=== PATIENT | male | born 1955 | race Caucasian/White ===

== ENCOUNTER 2020-02-18 08:34 | Inpatient (IN) | payer BC ==
[2020-02-18] VITALS (12 sets, daily range): BP systolic 120–163; BP diastolic 68–93
[~2020-02-18] VITALS: Ht 177.8 cm; Wt 107.4 kg
[2020-02-18] MEDS ORDERED: NORVASC 2.5 MG2.5 M1 PO (08:39)
[2020-02-18] MEDS ORDERED: LISINOPRIL2.5 MG PO (08:39)
[2020-02-18] MEDS ORDERED: LORCET 5-325 M1 EACH PO (08:40)
[2020-02-18 09:03] LABS: ABSOLUTE BASOPHILS 0.1 thou/uL (0.0-0.2); ABSOLUTE LYMPHOCYTES 1.8 thou/uL (0.8-5.3); ABSOLUTE MONOCYTES 0.5 thou/uL (0.0-1.2); ABSOLUTE NEUTROPHILS 6.6 thou/uL (1.6-8.1); EOSINOPHILS 0.5 %; HEMATOCRIT 43.7 % (42.0-52.0); HEMOGLOBIN 15.7 gm/dL (14.0-18.0); LYMPHOCYTES 19.9 %; MCH 32.1 pg (26.0-34.0); MCV 89.3 fL (80.0-100.0); MONOCYTES 5.1 %; MPV 9.1 fl. (7.2-11.1); NUCLEATED RBCS 0 /100WBC; PLATELET COUNT* 155 thou/uL (150-400); POLYS 73.5 %; RBC 4.89 mil/uL (4.50-6.00); RDW-CV 13.3 % (10.5-14.5)
[2020-02-18 09:09] LABS: CALCIUM 8.7 mg/dL (8.5-10.1); CREATININE 1.1 mg/dL (0.6-1.3); POTASSIUM 3.7 mmol/L (3.5-5.1)
[2020-02-18 09:12] LABS: APTT 27.5 Seconds (25.0-31.3); PROTIME 10.5 Seconds (9.20-11.50)
[2020-02-18 09:23] LABS: ALBUMIN 3.7 g/dL (3.4-5.0); MAGNESIUM 1.9 mg/dL (1.8-2.4); TOTAL BILIRUBIN 0.6 mg/dL (<0.1-1.0); TOTAL PROTEIN 6.8 g/dL (6.4-8.2)
[2020-02-18 09:55] LABS: CHOLESTEROL 190 mg/dL (<200); HDL CHOLESTEROL 28 mg/dL (>40); LDL CHOLESTEROL 108 mg/dL (<100); TC:HDL 6.8 Ratio (Not establshd); TRIGLYCERIDE 271 mg/dL (<150); VLDL 54 mg/dL (<40)
[2020-02-18 09:58] LABS: SERUM ASSESSMENT Clear
--- NOTE | 2020-02-18 15:25 | EKG ---
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
--- NOTE | 2020-02-18 16:45 | NUR ---
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 CATH CHECK DONE AT BS. PT ORIENTED TO ROOM,CALL LIGHT WITHIN REACH. EDUCATED ON BEDREST. VSS. NSR
--- NOTE | 2020-02-18 18:37 | NUR ---
PT UP THIS PM FROM GOAL UMPIRE. NO SIGNS OF BLEEDING OR HEMATOMA. NSR. DENIES CHEST PAIN. VSS
[2020-02-19 04:00] VITALS: BP 126/76
[2020-02-19 04:29] LABS: HEMATOCRIT 41.6 % (42.0-52.0); HEMOGLOBIN 15.1 gm/dL (14.0-18.0); MCH 32.5 pg (26.0-34.0); MCHC 36.2 g/dL (28.0-37.0); MCV 89.6 fL (80.0-100.0); MPV 9.9 fl. (7.2-11.1); RBC 4.65 mil/uL (4.50-6.00); RDW-CV 12.9 % (10.5-14.5); WBC 6.6 thou/uL (4.0-11.0)
--- NOTE | 2020-02-19 04:49 | NUR ---
PATIENT PROGRESSING TOWARDS GOALS: RIGHT GROIN CATH SITE REMAINS WITHOUT DRAINAGE EXTENDING BEYOND PREVIOUSLY MARKED BORDERS. REMAINS SOFT. PATIENT UP INDEPEDENTLY WITHOUT COMPLICATIONS. DENIES CHEST PAIN AND DISCOMFORT.
[2020-02-19 05:18] LABS: CALCIUM 8.1 mg/dL (8.5-10.1); POTASSIUM 3.5 mmol/L (3.5-5.1)
[2020-02-19 08:45] VITALS: BP 157/92
[2020-02-19] MEDS ORDERED: EFFIENT10 MG PO (09:36)
[2020-02-19] MEDS ORDERED: ASPIR 8181 M1 PO (09:36)
[2020-02-19 10:08] VITALS: BP 157/92
[2020-02-19] MEDS ORDERED: LIPITOR40 MG PO (10:18)
[2020-02-19] MEDS ORDERED: TOPROL XL25 MG PO (10:23)
[2020-02-19] MEDS ORDERED: NITROSTAT0.4 M1 SUBLING (10:26)
--- NOTE | 2020-02-19 10:44 | EKG ---
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
--- NOTE | 2020-02-19 10:45 | EKG ---
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 : 1955 Requested By: Omar Calle Order Number: [id number] Uli MD: Omar Calle Measurements Intervals [place] Rate: 62 P: 22 OR: 187 QRS: -4 QRSD: 97 T: 79 QT: 424 QTc: 431 Interpretive Statements Sinus rhythm Atrial premature complexes Abnormal R-wave progression, early transition Compared to ECG 02/18/2020 17:02:15 Atrial premature complex(es) now present Electronically Signed On 02-19-2020 10:45:33 CDT by Omar Calle [email or web address] <ELECTRONICALLY SIGNED> By: Omar Calle MD, [facility] 02/19/20 1045 0352 0352 Omar Calle MD, [facility] /EPI
[2020-02-19 11:08] VITALS: BP 157/92
[2020-02-19 12:10] VITALS: BP 138/81
--- NOTE | 2020-02-19 15:23 | NUR ---
Nutrition: consulted by cardiac rehab for heart healthy diet edu. Pt was out of room at visit this afternoon, diet information left by a hat on bedside table.
--- NOTE | 2020-02-21 14:43 | D ---
[facility] [address] [place] [address] DISCHARGE SUMMARY Name: EFREN ESPINOZA Room: [address] IN .R.#: [id number] Admission: 02/18/20 Attend Phys: Eric Monzon MD Discharge: 02/19/20 Date of : 57 Report #: [id number] THIS REPORT FOR: //name// cc: HERI DONIS MD, STEVEN A. MD ~ THIS REPORT FOR: //name// CC: Eric Donis MD DATE OF SERVICE: 02/19/2020 DISCHARGE DIAGNOSES: 1. Non-ST segment elevation myocardial infarction. 2. Coronary artery disease. 3. Hypertension. 4. Diabetes. 5. Hyperlipidemia. CONSULTANTS: None. PROCEDURES: Left heart catheterization via the right femoral artery with placement of drug-eluting stents in the right coronary artery and distal circumflex artery. CONSULTANTS: None. HISTORY OF PRESENT ILLNESS: The patient is a 64-year-old white male who came to the Emergency Room complaining of chest pain. The patient has a long history of diabetes and hypertension. Fortunately, he lost weight and he is no longer taking diabetic medications. He does not exercise on a regular basis. He works at [employer] and his is actually in [place] with his child. He has no previous history of heart disease. However, he worked the night prior to admission when he felt a discomfort in his chest, it started about 5 hours prior to admission. He had another episode several days ago. He denies exertional dyspnea and palpitations. Because of discomfort, he finally brought himself to the Emergency Room and he was noted to have an abnormal troponin. PAST MEDICAL HISTORY: Significant for a previous cervical spine fusion. He has a history of hypertension and glucose intolerance. MEDICATIONS: Include lisinopril and amlodipine. He is on hydrocodone for chronic back pain. ALLERGIES: HE [place] [address] DISCHARGE SUMMARY Name: EFREN ESPINOZA Room: [address]#: [id number] Admission: 02/18/20 Attend Phys: Eric Monzon MD Discharge: 02/19/20 Date of : 57 Report #: [id number] PHYSICAL EXAMINATION: VITAL SIGNS: His blood pressure was 160/90 and pulse was 70. CHEST: Clear to auscultation. CARDIAC: Regular rate and rhythm. ABDOMEN: Soft. EXTREMITIES: Had no edema. SKIN: Cool and dry. NEUROLOGIC: Nonfocal. DIAGNOSTIC DATA: His ECG on admission showed a sinus rhythm, minor nonspecific ST-segment and T-wave changes were noted. His x-ray, he had a portable chest x-ray on admission that showed normal heart size and clear lung manriquez. LABORATORY DATA: Sodium 134, potassium 3.7, BUN 12, creatinine 1.1, glucose is 208. His liver function studies were normal. Troponin on admission was 0.91. His cholesterol was 190, triglycerides 271, HDL 28, and LDL 108. His white blood cell count 9.0 and hemoglobin 15.7. HOSPITAL COURSE: The patient was felt to be having acute coronary syndrome. He was taken urgently to the cardiac catheterization lab by my partner, Dr. Eric Monzon. Cardiac catheterization was performed from the right femoral artery. There was a 70% irregular area of stenosis in the mid LAD. The distal circumflex was completely occluded with thrombus formation. The right coronary had mid 90% stenosis. He had normal ejection fraction of 60%. He was then given heparin and a bolus of Aggrastat. I placed a single drug-eluting stent in the right coronary artery. I then performed reperfusion of the distal circumflex and placed 2 drug-eluting stents in the distal circumflex. He tolerated this well. An Angio-Seal was placed. Prior to discharge, he was ambulating and had no further complaints. He denied chest pain, shortness of breath, lightheadedness. There was no hematoma in the groin. Followup ECG showed a sinus rhythm with only nonspecific T-wave changes. Followup lab work included a fasting blood sugar of 128. His troponin peaked at 14. His followup hemoglobin was 15.1. He was seen by cardiac rehabilitation prior to discharge. At the time of discharge, he had a blood pressure of 150/90 with the pulse of 80. He was afebrile. He was discharged to continue home medications included lisinopril for his blood pressure. He was taken off of amlodipine and switched to a beta cristobal because of his myocardial infarction. He was started on Lipitor 40 mg a day for his hyperlipidemia. He was given Effient 10 mg a day following stent placement He was to take aspirin 81 mg a day. For his diabetes, he was started on metformin 500 mg twice a day. He was scheduled to return to see my nurse practitioner in 1 week. If he remains stable, he will be given a release to go back to work at [employer]. I did recommend he enroll in cardiac rehabilitation. He will follow up with Dr. Donis for routine medical [address] [address] DISCHARGE SUMMARY Name: EFREN ESPINOZA Room: [address] IN M.[place].#: [id number] Admission: 02/18/20 Attend Phys: Eric Monzon MD Discharge: 02/19/20 Date of : 57 Report #: [id number] care including management of his diabetes. I did recommend he start an exercise program. He was to contact my office if he had any bleeding or chest pain. <ELECTRONICALLY SIGNED> By: Omar Calle MD, FACC 02/21/20 1443 0958 [id number] Calle MD, FACC /nt
--- NOTE | 2020-02-24 16:02 | CARD ---
[facility] [address] [place] [address] CARDIAC CATH REPORT Name: EFREN ESPINOZA Room: [address]#: [id number] Admission: 02/18/20 Attend Phys: Eric Monzon MD Discharge: 02/19/20 Date of : 57 Report #: [id number] THIS REPORT FOR: //name// cc: HERI DONIS MD, STEVEN A. MD ~ APPROVED REPORT Study performed: 02/18/2020 13:35:20 Patient Details Patient Status: ED Room #: The patient is a 64 year-old male Event Personnel Eric Monzon Supervisor Cytogenetic Laboratory, Inder Lacy RN RN, Farhana Carolina RTR Scrub, Delmis Ash RTR Monitor, Omar Calle Hide Selector Procedures Performed Art Access - R femoral artery Left Heart Cath w/or w/o Coronaries AILEEN Place w/wo Plasty Single RCA AILEEN Place w/wo Plasty Addl BR OM 1 Hemostasis w/ Angioseal Indication Abnormal ECG, Non-STEMI , Chest pain Risk Factors Hypercholesterolemia, Hypertension, Diabetes Tobacco History () Admission/Lab Medications/Medications given during procedure Glycoprotein IllbIlla Inhibitors, Heparin Unfract., Oxygen Nasal cannula 2 l per min, 0.9% Sodium Chloride IV 75 ml per hr, Fentanyl IV 25 mcg, Midazolam (Versed) IV 1 mg, Lidocaine Subcut 12 ml, Aggrastat IV 10.7 ml, Heparin IV 6000 units, Nitroglycerin IC 200 mcg, Effient PO 60 mg Procedure Narrative The patient was brought urgently to the Cardiac Catheterization Laboratory and was prepped and draped in a sterile manner. The right femoral was infiltrated with 2% Lidocaine subcutaneous anesthesia. A [place] 6 FR sheath was inserted into the right femoral artery. Coronary angiography was performed using coronary diagnostic catheters. The right coronary system was [place] [address] CARDIAC CATH REPORT Name: EFREN ESPINOZA Room: [address]#: [id number] Admission: 02/18/20 Attend Phys: Eric Monzon MD Discharge: 02/19/20 Date of : 57 Report #: [id number] a Diagnostic 6 Fr JR 4 catheter. The left coronary system was accessed and visualized with a Diagnostic 6 Fr JL 4 catheter. The left ventricle was accessed and visualized with a Diagnostic 6 Fr Pigtail catheter. Left ventricular/Aortic Valve gradient assessed via catheter pullback. Left ventriculogram was performed in DAMON projection. Closure device was deployed with a 6 Fr Angioseal STS 6Fr. The patient tolerated the procedure well and there were no complications associated with the procedure. There was no hematoma. Intraoperative Conscious Sedation Sedation start time: 14:49 Case end Time: 16:07 Fentanyl 25 mcg Versed 2 mg Fluoro Time: 11.6 minutes Dose: DAP 733502 cGycm2 3543 mGy Contrast Type and Amount: Omnipaque 280 ml Coronary Angiography The patient's coronary anatomy is right dominant. Diagnostic Cath Left Main The left main coronary artery is normal and trifurcates into a left anterior descending, intermediate ramus and circumflex coronary artery. LAD The LAD has a 70% mid stenosis with some poststenotic dilatation noted. Distally there is 50% plaquing. Diagonal 1 The first diagonal branch is normal. Diagonal 2 The second diagonal branch has sequential 50% narrowings in its mid and distal portion. Circumflex The circumflex coronary artery is acutely occluded in its midportion. OM1 The first obtuse marginal branch appears normal. Right Coronary The right coronary artery has a 90% mid stenosis. R PDA The right PDA has a 50% proximal and 70% mid stenosis. RPLV The right posterior lateral LV branch is normal. Ramus The intermediate ramus branch is normal. Left Ventriculography The left ventricle is normal in size with normal contractility. The left ventricular ejection fraction is estimated to be 60%. Left ventricular wall motion abnormalities [place] [address] CARDIAC CATH REPORT Name: EFREN ESPINOZA Room: [address] IN .R.#: [id number] Admission: 02/18/20 Attend Phys: Eric Monzon MD Discharge: 02/19/20 Date of : 57 Report #: [id number] Hemodynamics The aortic pressure is 145/78 mmHg with a mean of 110 mmHg. The left ventricular pressure is 158/-8 mmHg with a mean of mmHg. The left ventricular end diastolic pressure is 15 mmHg. PCI Technique Lesion Anticoagulation was achieved with Heparin. bolus of iv aggrastat given Percutaneous coronary intervention was performed on the mid right coronary artery. The lesion stenosis prior to intervention was 90% with MARLON 3 flow. A 6FR JCR 4 100CM Guide Catheter was used to engage the right ostium. A IG: BMW 190cm Interventional Guidewire was used to cross the lesion. BALLOON DILATION A Balloon catheter Trek RX 2.5 X 8 was inserted and inflated up to 16.00atm for 17seconds. Repeat angiography revealed the following post-dilatation results: 40% stenosis. Additional Inflation: 16.00atm for 10seconds. STENT DEPLOYMENT A drug-eluting stent [place] RX Stent 3.0X18mm was inserted and inflated up to 14.00atm for 16seconds. Repeat angiography revealed the following post-stent deployment results: 0% stenosis. Additional Inflation: 15.00atm for 15seconds. Additional Inflation: 17.00atm for 21seconds. Final angiography reveals 0 % stenosis with MARLON 3 flow. PCI Technique Lesion 2 Percutaneous Coronary Intervention was performed on the distal circumflex artery segment. Patient was preloaded with Heparin IV 6000 units. Percutaneous coronary intervention was performed on the distal circumflex artery segment. The lesion stenosis prior to intervention was 100% with MARLON 0 flow. A 6F XB 4.0 Guide Catheter was used to engage the left ostium. A IG: BMW 190cm Interventional Guidewire was used to cross the lesion. Balloon Dilation A Balloon catheter Trek RX 2.5 X 8 was inserted and inflated up to 8.00atm for 11seconds. Repeat angiography revealed the following post-dilatation results: 60% stenosis. Additional Inflation: 8.00atm for 12seconds. Stent Deployment A drug-eluting stent [place] RX Stent 2.5X15mm was inserted and inflated up to 9.00atm for 23seconds. Repeat angiography revealed the [place] [address] [place] [address] CARDIAC CATH REPORT Name: EFREN ESPINOZA Room: [address]#: [id number] Admission: 02/18/20 Attend Phys: Eric Monzon MD Discharge: 02/19/20 Date of : 57 Report #: [id number] following post-stent deployment results: 0% stenosis but 80% stenosis noted proximal to the stent. Additional Inflation: 10.00atm for 12seconds. Additional Inflation: 13.00atm for 19seconds. A second drug- eluting stent [place] RX Stent 2.5 x 12mm was inserted and inflated up to 11 ivania for 19 seconds and 12 ivania for 10 seconds, which was just proximal to the first stent so that there was minimal overlap between the 2 stents. Final angiography reveals 0 % stenosis with MARLON 3 flow. Conclusion 1. acute occlusion of the distal circumflex artery with staining noted consistent with recent thrombus formation. 2. 90% stenosis of the mid rca 3. successful placement of drug eluting stents in the mid rca and distal circumflex artery. 4. LVEF 60% Recommendations Cardiac Rehabilitation Referral Aggressive Medical Therapy Medications Administered Prasugrel Diagnostic Cath Approved by: Eric Monzon MD Date/Time: <ELECTRONICALLY SIGNED> By: Omar Calle MD, [facility] 02/24/20 1601 160 1601Dyang Calle MD, FACC /INF
== END 2020-02-19 15:35 | disposition home or self-care (01) | DRG 247 ==
LOC: M.ERS 08:34 → M.TBA-ER 12:18 → M.2W 16:38
PROVIDERS: Family Medicine; Internal Medicine Cardiovascular Disease; Registered Nurse; ADMIT Internal Medicine Cardiovascular Disease; ATTEND Internal Medicine Cardiovascular Disease
PROC: 027034Z Dilation of Coronary Artery, One Artery with Drug-eluting Intraluminal Device, Percutaneous Approach (ICD-10-PCS; principal; 2020-02-19)
PROC: B2111ZZ Fluoroscopy of Multiple Coronary Arteries using Low Osmolar Contrast (ICD-10-PCS; principal; 2020-02-19)
PROC: 4A023N7 Measurement of Cardiac Sampling and Pressure, Left Heart, Percutaneous Approach (ICD-10-PCS; principal; 2020-02-19)
DX: I21.4 Non-ST elevation (NSTEMI) myocardial infarction (principal); I10 Essential (primary) hypertension; E78.5 Hyperlipidemia, unspecified; E11.9 Type 2 diabetes mellitus without complications; G89.29 Other chronic pain; M54.2 Cervicalgia; I25.10 Atherosclerotic heart disease of native coronary artery without angina pectoris; Z20.828 Contact with and (suspected) exposure to other viral communicable diseases; Z88.0 Allergy status to penicillin; Z82.49 Family history of ischemic heart disease and other diseases of the circulatory system

== ENCOUNTER 2020-02-23 18:42 | Emergency (ER) | payer BC ==
[~2020-02-23] VITALS: Ht 180.3 cm; Wt 104.3 kg
[~2020-02-23 18:42] MED LIST: ASPIR 8181 M1 PO; EFFIENT10 MG PO; LIPITOR40 MG PO; LISINOPRIL2.5 MG PO; LORCET 5-325 M1 EACH PO; NITROSTAT0.4 M1 SUBLING; NORVASC 2.5 MG2.5 M1 PO; TOPROL XL25 MG PO
[2020-02-23 19:53] VITALS: BP 138/70
== END 2020-02-23 19:54 | disposition home or self-care (01) ==
LOC: M.ERS 18:42
DX: S30.811A Abrasion of abdominal wall, initial encounter (principal); I10 Essential (primary) hypertension; Z88.0 Allergy status to penicillin; X58.XXXA Exposure to other specified factors, initial encounter; Y93.89 Activity, other specified; Y92.89 Other specified places as the place of occurrence of the external cause; Y99.8 Other external cause status

== ENCOUNTER 2020-02-27 08:47 | Observation (INO) | payer BC ==
[~2020-02-27] VITALS: Ht 180.3 cm; Wt 149.7 kg
[2020-02-27] VITALS (10 sets, daily range): BP systolic 109–135; BP diastolic 57–88
--- NOTE | ~2020-02-27 | H ---
[address] [address] HISTORY AND PHYSICAL Name: EFREN ESPINOZA Room: [address] [place] MTorey#: [id number] Admission: 02/27/20 Attend Phys: Eric Monzon MD Discharge: 02/28/20 Date of : 57 Report #: [id number] THIS REPORT FOR: //name// cc: HERI DONIS MD, STEVEN A. MD ~ THIS REPORT FOR: //name// Please refer to the History and Physical performed in the physician's office. By: [id number] Records Staff [facility]
--- NOTE | ~2020-02-27 | D ---
[facility] [address] [place] [address] DISCHARGE SUMMARY Name: EFREN ESPINOZA Room: [address] MMasoud.#: [id number] Admission: 02/27/20 Attend Phys: Eric Monzon MD Discharge: Date of : 57 Report #: [id number] THIS REPORT FOR: //name// cc: HERI DONIS MD, STEVEN A. MD THIS REPORT FOR: //name// CC: Omar Calle MD [facility] Eric Donis MD DISCHARGE DIAGNOSES: 1. Unstable angina. 2. Coronary artery disease. 3. Hypertension. 4. Dyslipidemia. PROCEDURES DURING THE HOSPITALIZATION: 1. Coronary angiography. 2. Percutaneous coronary intervention with drug-eluting stent placement to the proximal to mid left anterior descending coronary artery. HOSPITAL COURSE: The patient was seen in the hospital with recurrent chest discomfort after recent intervention. He was brought to the medical laboratory scientist for angiography. Angiography revealed a high-grade proximal LAD lesion. The patient underwent a drug-eluting stent placement without complication. The patient tolerated the procedure well. His post-intervention course was unremarkable. The patient is being discharged in satisfactory condition. DISCHARGE MEDICATIONS: 1. Amlodipine 2.5 mg daily. 2. Aspirin 81 mg daily. 3. Atorvastatin 40 mg daily. 4. Lisinopril 2.5 mg daily. 5. Metoprolol succinate 25 mg daily. 6. Effient 10 mg daily. 7. Nitrostat sublingual p.r.n. 8. [place] 5/325 one tablet every 6 hours p.r.n. DISPOSITION: The patient is to follow up in 4 weeks with the cardiac nurse practitioner. By: [id number] Monzon MD, FACC /nt
[2020-02-27 09:20] LABS: HEMATOCRIT 44.4 % (42.0-52.0); MCH 32.6 pg (26.0-34.0); MCV 90.6 fL (80.0-100.0); MPV 9.8 fl. (7.2-11.1); RBC 4.9 mil/uL (4.50-6.00); RDW-CV 13.3 % (10.5-14.5); WBC 6.9 thou/uL (4.0-11.0)
[2020-02-27 09:27] LABS: ANION GAP 7 mmol/L (7-16); BUN 13 mg/dL (7-18); CALCIUM 8.9 mg/dL (8.5-10.1); CHLORIDE 104 mmol/L (98-107); CO2 30 mmol/L (21-32); CREATININE 1.1 mg/dL (0.6-1.3); GLUCOSE 124 mg/dL (70-99); POTASSIUM 4.1 mmol/L (3.5-5.1); SODIUM 141 mmol/L (136-145)
[2020-02-27 09:31] LABS: ALBUMIN 3.8 g/dL (3.4-5.0); ALKALINE PHOSPHATASE 78 U/L (46-116); CHOLESTEROL 121 mg/dL (<200); HDL CHOLESTEROL 27 mg/dL (>40); LDL CHOLESTEROL 50 mg/dL (<100); SERUM ASSESSMENT Clear; SGOT 36 U/L (15-37); SGPT 74 U/L (30-65); TC:HDL 4.5 Ratio (Not establshd); TOTAL BILIRUBIN 0.6 mg/dL (<0.1-1.0); TOTAL PROTEIN 7.1 g/dL (6.4-8.2); TRIGLYCERIDE 222 mg/dL (<150); VLDL 44 mg/dL (<40)
[2020-02-27 09:39] LABS: APTT 29.2 Seconds (25.0-31.3)
--- NOTE | 2020-02-27 13:08 | CARD ---
[address] [place] [address] CARDIAC CATH REPORT Name: ALEXIS,EFREN Dumont Room: [address] [place] M.RJimmy#: [id number] Admission: 02/27/20 Attend Phys: Eric Monzon MD Discharge: Date of : 57 Report #: [id number] THIS REPORT FOR: //name// cc: HERI DONIS MD, STEVEN A. MD ~ APPROVED REPORT Study performed: 02/27/2020 09:56:07 Patient Details Patient Status: Out-Patient Room #: The patient is a 64 year-old male Event Personnel Eric Monzon Clinic Coordinator, Joao Kelly Geodetic Advisor, Inder Lacy RN RN, Farhana Carolina RTR Mihir Villavicencio Jessie RTR Monitor Procedures Performed Art Access - R femoral artery AILEEN Place w/wo Plasty Single LAD Left Heart Cath w/or w/o Coronaries C Hemostasis w/ Angioseal Indication Unstable angina Risk Factors Hypercholesterolemia, Hypertension Previous Procedures/Diagnoses Previous PCI, Previous MD Admission/Lab Medications/Medications given during procedure Lidocaine Subcut 14 ml, Angiomax IV 16 ml, Angiomax Drip IV 36.57 ml per hr, Nitroglycerin IC 200 mcg, Effient PO 30 mg Procedure Narrative The patient was brought electively to the Cardiac Catheterization Laboratory and was prepped and draped in a sterile manner. The right femoral was infiltrated with 2% Lidocaine subcutaneous anesthesia. A [place] 6 FR sheath was inserted into the right femoral artery. Coronary angiography was performed using coronary diagnostic catheters. The right coronary system was accessed and visualized with a Diagnostic 6 Fr JR 4 catheter. The [place] [address] CARDIAC CATH REPORT Name: ALEXISEFREN Tim Room: [address] [place]#: [id number] Admission: 02/27/20 Attend Phys: Eric Monzon MD Discharge: Date of : 57 Report #: [id number] accessed and visualized with a Guide 6 Fr XBLAD 3.5 catheter. The left ventricle was accessed and visualized with a Diagnostic 6 Fr JR 4 catheter. Left ventricular/Aortic Valve gradient assessed via catheter pullback. Closure device was deployed with a Fr Angioseal STS 6Fr. The patient tolerated the procedure well and there were no complications associated with the procedure. There was no hematoma. Intraoperative Conscious Sedation No sedation was given. Case start time was 10:54 and case end time was 11:43. Fluoro Time: 12.7 minutes Dose: DAP 903398 cGycm2 2437 mGy Contrast Type and Amount: Visipaque 260 ml Diagnostic Cath Left Main 0% narrowing LAD 75% irregular ectatic proximalmid vessel stenosis with an ulcerated plaque in the middle of the lesion Circumflex 40% mid vessel narrowing with 100% distal occlusion Right Coronary 40% proximal narrowing with a widely patent stent at the acute margin Left Ventriculography Left Ventriculography was not performed. Hemodynamics The aortic pressure is 150/78 mmHg with a mean of 99 mmHg. The left ventricular pressure is 151/16 mmHg with a mean of mmHg. The left ventricular end diastolic pressure is 24 mmHg. PCI Technique Lesion Anticoagulation was achieved with Angiomax Drip. Patient was preloaded with Angiomax IV 16 ml. Percutaneous coronary intervention was performed on the mid left anterior descending artery segment. The lesion stenosis prior to intervention was 75% with MARLON flow. A 6F XB LAD 3.5 Guide Catheter was used to engage the left ostium. A IG: BMW 190cm Interventional Guidewire was used to cross the lesion. BALLOON DILATION A Balloon catheter Euphora SC 2.0x12mm was inserted and inflated up to 16.00atm for 19seconds. Additional Inflation: 16.00atm for 12seconds[place] [address] CARDIAC CATH REPORT Name: ALEXISEFREN Tim Room: [address]#: [id number] Admission: 02/27/20 Attend Phys: Eric Monzon MD Discharge: Date of : 57 Report #: [id number] A drug-eluting stent [place] RX Stent 2.0X30mm was inserted and inflated up to 14.00atm for 10seconds. Additional Inflation: 16.00atm for 8seconds. POST STENT DEPLOYMENT BALLOON DILATION A Balloon catheter [place] Euphora 2.75x15 was inserted and inflated up to 10atm for 10seconds. Final angiography reveals 0 % stenosis with MARLON 3 flow. PCI Technique Lesion 2 Percutaneous Coronary Intervention was performed on the proximal left anterior descending artery segment. The lesion stenosis prior to intervention was 75% with MARLON 3 flow. Balloon Dilation A Balloon catheter Euphora SC 2.0x12mm was inserted and inflated up to 16.00atm for 11seconds. Stent Deployment A drug-eluting stent [place] RX Stent 2.5X30mm was inserted and inflated up to 12.00atm for 12seconds. Additional Inflation: 16.00atm for 11seconds. Post Stent Deployment Balloon Dilation A Balloon catheter [place] Euphora 2.75x15 was inserted and inflated up to 12.00atm for 8seconds. Additional Inflation: 16.00atm for 13seconds. Additional Inflation: 20.00atm for 17seconds. Final angiography reveals 0 % stenosis with MARLON 3 flow. Conclusion 1. Significant coronary arteriy disease characterized by the following: A 75% tubular irregular and ectatic proximalmid LAD stenosis with a mid lesion ulcerated plaque B 40% mid with 100% distal circumflex occlusion C 40% mid right coronary narrowing with a widely patent stent at the acute margin 2. Moderate elevation of left ventricular end-diastolic [place] [address] CARDIAC CATH REPORT Name: EFREN ESPINOZA Room: [address] [place] Araya#: [id number] Admission: 02/27/20 Attend Phys: Eric Monzon MD Discharge: Date of : 57 Report #: [id number] 3. Successful PCI with deployment of sequential drug-eluting stents at the sites of 75% proximal and mid LAD stenosis with 0% residual narrowing and MARLON-3 flow to the distal vessel Recommendations Cardiac Risk Reduction Program Aggressive Medical Therapy Medications Administered Aspirin (any) Prasugrel Diagnostic Cath Approved by: Eric Monzon MD Date/Time: 02/27/2020 13:06:53 <ELECTRONICALLY SIGNED> By: Joao Kelly MD, [facility] 02/27/20 1307 06 1307Joao Kelly MD, FACC /INF
--- NOTE | 2020-02-27 13:24 | EKG ---
[place] [address] ELECTROCARDIOGRAM REPORT Name: EFREN ESPINOZA Room: [address]#: [id number] Admission: 02/27/20 Attend Phys: Eric Monzon, Discharge: Date of : 57 Date of Service: 02/27/20 1012 Report #: [id number] THIS REPORT FOR: //name// [facility] Test Date: 2020-02-27 Test Time: 10:12:49 Pat Name: EFREN ESPINOZA Department: Room: [facility] Gender: M Emergency Care Tech: : 1955 Requested By: Eric Monzon Order Number: [id number] Reading MD: Eric Monzon Measurements Intervals [place] Rate: 57 P: 45 MS: 191 QRS: 11 QRSD: 87 T: 85 QT: 443 QTc: 432 Interpretive Statements Sinus rhythm ST elevation consistent with early repolarization abnormal R-wave progression, early transition Nonspecific T abnormalities, lateral leads Compared to ECG 02/19/2020 03:52:56 T-wave abnormality now present Atrial premature complex(es) no longer present Electronically Signed On 02-27-2020 13:24:47 CDT by Eric Monzon [email or web address] <ELECTRONICALLY SIGNED> By: Eric Monzon MD, FACC 02/27/20 1324 1012 1012 Eric Monzon MD, FAC /EPI
[2020-02-28] VITALS: BP 116/60
[2020-02-28 04:00] VITALS: BP 108/71
[2020-02-28 05:36] LABS: HEMATOCRIT 44.6 % (42.0-52.0); HEMOGLOBIN 15.9 gm/dL (14.0-18.0); MCH 32.5 pg (26.0-34.0); MCHC 35.5 g/dL (28.0-37.0); MCV 91.6 fL (80.0-100.0); MPV 10.4 fl. (7.2-11.1); RBC 4.87 mil/uL (4.50-6.00); RDW-CV 13.3 % (10.5-14.5); WBC 8.3 thou/uL (4.0-11.0)
[2020-02-28 05:56] LABS: ALBUMIN 3.9 g/dL (3.4-5.0); CALCIUM 8.6 mg/dL (8.5-10.1); CREATININE 1.2 mg/dL (0.6-1.3); POTASSIUM 4.1 mmol/L (3.5-5.1); TOTAL BILIRUBIN 0.8 mg/dL (<0.1-1.0); TOTAL PROTEIN 7.4 g/dL (6.4-8.2)
[2020-02-28 08:00] VITALS: BP 123/74
[2020-02-28 11:50] VITALS: BP 130/77
--- NOTE | 2020-02-28 13:07 | EKG ---
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1955 Requested By: Eric Monzon Order Number: [id number] Reading MD: Joao Kelly Measurements Intervals [place] Rate: 65 P: 41 ME: 187 QRS: 2 QRSD: 82 T: 67 QT: 422 QTc: 439 Interpretive Statements Sinus rhythm Compared to ECG 02/27/2020 10:12:49 ST (T wave) deviation no longer present Early repolarization no longer present T-wave abnormality no longer present Electronically Signed On 02-28-2020 13:07:30 CDT by Joao Kelly [email or web address] <ELECTRONICALLY SIGNED> By: Joao Kelly MD, [facility] 02/28/20 1307 1536 1536 Joao Kelly MD, [facility] /EPI
--- NOTE | 2020-02-28 13:10 | EKG ---
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 <ELECTRONICALLY SIGNED> By: Joao Kelly MD, [facility] 02/28/20 1310 0637 0637 Joao Kelly MD, [facility] /EPI
== END 2020-02-28 13:45 | disposition home or self-care (01) ==
LOC: M.CL 08:47 → M.TBA-CV 10:33 → M.2W 10:33
PROVIDERS: ADMIT Internal Medicine Cardiovascular Disease; ATTEND Internal Medicine Cardiovascular Disease
DX: I25.110 Atherosclerotic heart disease of native coronary artery with unstable angina pectoris (principal); I10 Essential (primary) hypertension; E78.5 Hyperlipidemia, unspecified